=== PATIENT | male | born 1985 | race Caucasian/White ===

== ENCOUNTER 2023-10-03 16:37 | Outpatient (CLI) | payer OTHER, SELFPAY ==
--- NOTE | ~2023-10-03 | XR_ITS ---
Left Hand Technique: PA, oblique, and lateral views were obtained. Clinical History: Fifth metacarpal fracture COMPARISON: 09/18/2023 Findings: Fracture of the proximal fifth metacarpal shaft is similar to prior exam, possible minimal increase displacement.. Joint spaces are preserved. Soft tissues are unremarkable. Impression: Proximal fifth metacarpal shaft fracture is similar to prior exam, possible minimally increased displ acement. Reviewed, dictated and finalized at location M. [employer] Impression: Proximal fifth metacarpal shaft fracture is similar to prior exam, possible min imally increased displacement.
== END 2023-10-03 16:38 | disposition home or self-care (01) ==
LOC: ANHIMG 16:38
PROVIDERS: PCP Nurse Practitioner Family; Visit Provider Plastic Surgery
DX: S62.317A Displaced fracture of base of fifth metacarpal bone, left hand, initial encounter for closed fracture (principal); X58.XXXA Exposure to other specified factors, initial encounter
CPT/HCPCS: 73130